=== PATIENT | female | born 1955 | race Caucasian/White ===

== ENCOUNTER 2017-06-08 09:55 | Emergency (ER) | payer OTHER, BC ==
[~2017-06-08] VITALS: Ht 160 cm; Wt 80.5 kg
[~2017-06-08 09:55] MED LIST: CETI10TA84 PO; CHOL1TAB42 PO; FERR325T PO; GABA800T PO; HYDR25TA5 PO; MULT-506 PO; NAPR1CAP12 PO; OMEG10007 PO; ROPI3TAB2 PO; WLLSR150 PO
[2017-06-08 10:00] VITALS: BP 140/73; PULSE 82; TEMP 36.7; O2SAT 96; Ht 160 cm; Wt 80.5 kg
--- NOTE | 2017-06-08 10:27 | EMERGENCY ROOM VISIT NOTE ---
History Report prepared by Philip: Rosalba Jackson Under the Supervision of: Thad FarahO. First contact with patient: 10:16 Chief Complaint: LEG PAIN,LEG INJURY Stated Complaint: RIGHT LEG PAIN History of Present Illness The patient is a 61 year old female who presents to the Emergency Room with complaints of sudden right leg pain beginning yesterday at 1600. The patient states that she was getting into her vehicle, and she felt a pop on her right upper leg and felt the pain radiate down. She reports that when she walks, the pain radiates down her leg and that it pendleton. She reports that she has torn her right hamstring twice, but that she has never needed surgery on it. The patient states that she has a walker and that she feels she needs this for assistance because of her pain. Pt denies headache and fevers. Source of History: patient Onset: 1600 yesterday Position: leg (right) Quality: burning Timing: other (sudden) Associated Symptoms: No fevers, No headache Review of Systems See HPI for pertinent positives & negatives. A total of 10 systems reviewed and were otherwise negative. Past Medical & Surgical Medical Problems: (1) Benign hypertension (2) Diabetes mellitus type 2 (3) Lumbar decompression and fusion Family History No pertinent family history stated. Social History Smoking Status: Never Smoker Drug Use: none Marital Status: Housing Status: lives with family Current/Historical Medications Scheduled Bupropion HCl (Bupropion HCl Sr), 150 MG PO BID Cetirizine (Zyrtec), 10 MG PO DAILY PRN Cholecalciferol (Vitamin D), 10,000 UNITS PO DAILY Ferrous Sulfate (Ferrous Sulfate), 325 MG PO DAILY Fish Oil ([place]-3), 2 CAP PO DAILY Gabapentin (Neurontin), 800 MG PO TID Hydrochlorothiazide (Hydrochlorothiazide), 25 MG PO DAILY Magnesium Oxide (Mag-Ox), 400 MG PO DAILY Multivitamin (Multivitamin), 1 TAB PO DAILY Naproxen Sodium (Aleve), 1 TAB PO BID Ropinirole Hydrochloride (Requip), 3 MG PO DAILY Scheduled PRN Oxycodone/Acetaminophen 5MG/325MG (Percocet 5MG/325MG), 1 TAB PO Q6H PRN for Pain Allergies Coded Allergies: Hydrocodone (Verified Allergy, Intermediate, ITCHING, 06/08/17) Latex (Unverified Allergy, Mild, rash, 06/08/17) Physical Exam Vital Signs Date Time Temp Pulse Resp B/P (MAP) Pulse Ox O2 Delivery O2 Flow Rate FiO2 06/08/17 10:00 36.7 82 18 140/73 96 Room Air Physical Exam GENERAL: alert, well appearing, well nourished, no distress, non-toxic EYE EXAM: normal conjunctiva, PERRL and EOM's grossly intact OROPHARYNX: no exudate, no erythema, lips, buccal mucosa, and tongue normal and mucous membranes are moist NECK: supple, no nuchal rigidity, no adenopathy, non-tender LUNGS: Clear to auscultation. Normal chest wall mechanics HEART: no murmurs, S1 normal and S2 normal ABDOMEN: abdomen soft, non-tender, normo-active bowel sounds, no masses, no rebound or guarding. BACK: Back is symmetrical on inspection and there is no deformity, no midline tenderness, no CVA tenderness. SKIN: no rashes and no bruising UPPER EXTREMITIES: upper extremities are grossly normal. LOWER EXTREMITIES: Pain in the proximal posterior right lower extremity with flexion of the knee. No pain on extension. Full ROM. No obvious contusion or edema. No palpable edema. Compartment soft. No bony tenderness. Normal distal pulses. No other extremity swelling. NEURO EXAM: Normal sensorium, cranial nerves II-XII grossly intact, normal speech, no gross weakness of arms, no gross weakness of legs. Medical Decision & Procedures ED Course 1023: The patient was evaluated in room C7. A complete history and physical exam was performed. 1045: Upon reevaluation, the patient is feeling better. I discussed the treatment plan with the patient. She verbalizes agreement and understanding. She was discharged home. Medical Decision The patient is a 61 year old female who presents to the ED with complaints of right leg pain. Differentials include: hamstring tear, fracture, sciatica, and muscle strain. No direct trauma, did not feel imaging of any additional value. Pt states will follow-up with ortho this week. Discussed symptoms to watch and return for, she verbalized understanding was agreeable with plan. Medication Reconcilliation Current Medication List: was personally reviewed by me Blood Pressure Screening Patient's blood pressure: Normal blood pressure Impression Primary Impression: Leg pain, right Additional Impression: Hamstring tear Scribe Attestation The scribe's documentation has been prepared under my direction and personally reviewed by me in its entirety. I confirm that the note above accurately reflects all work, treatment, procedures, and medical decision making performed by me. Departure Information Dispostion Home / Self-Care Prescriptions Oxycodone/Acetaminophen 5MG/325MG (PERCOCET 5MG/325MG) Tab 1 TAB PO Q6H Y for Pain, #10 TAB Prov: Soni Rosales, DO 06/08/17 Referrals No Doctor, Assigned (PCP) Forms HOME CARE DOCUMENTATION FORM, IMPORTANT VISIT INFORMATION Patient Instructions My [facility] [employer] Additional Instructions Please follow-up with your employee health/workmans comp department as this happened on the job. Please rest the leg, avoid prolonged walking and going steps. You may use anti-inflammatories to help with pain and if pain is persistent, may try to the stronger pain medicine. Please note that the narcotic pain medicine can constipate you or may make you dizzy/drowsy. Please do not take it and drive or drink alcohol. If you have any worsening pain, increased swelling in the leg, develop numbness/tingling, develop fevers, back pain, notice a change in your urine/stool, or you have any other new or concerning symptoms, please return to the emergency room. Problem Qualifiers
[2017-06-08] MEDS ORDERED: MAGN400T6 PO (10:29)
[2017-06-08] MEDS ORDERED: OXYC-57 PO (10:35)
== END 2017-06-08 10:49 | disposition home or self-care (01) ==
LOC: C.EDB 09:57 → C.EDC 10:49
DX: M79.604 Pain in right leg (principal); S76.312A Strain of muscle, fascia and tendon of the posterior muscle group at thigh level, left thigh, initial encounter; X58.XXXA Exposure to other specified factors, initial encounter; I10 Essential (primary) hypertension; E11.9 Type 2 diabetes mellitus without complications

== ENCOUNTER → 2017-06-13 | Outpatient (CLI) | payer BC ==
[~2017-06-13] MED LIST changes: +MAGN400T6 PO; +OXYC-57 PO
--- NOTE | 2017-06-13 15:46 | MAMMOGRAPHY REPORT ---
BILATERAL DIGITAL SCREENING MAMMOGRAM WITH CAD: 06/13/2017 CLINICAL HISTORY: Routine screening. Patient has no complaints. TECHNIQUE: Current study was also evaluated with a Computer Aided Detection (CAD) system. Bilateral CC and MLO views were obtained. COMPARISON: Comparison is made to exams dated: 10/14/2013 mammogram, 10/05/2012 mammogram, 10/17/2014 rani mogram, 10/02/2011 mammogram, 07/25/2010 mammogram, and 07/24/2009 mammogram - [facility] enter. BREAST COMPOSITION: There are scattered areas of fibroglandular density in both breasts. FINDINGS: No suspicious masses, calcifications, or areas of architectural distortion are noted in ei ther breast. There has been no significant interval change compared to prior exams. IMPRESSION: ACR BI-RADS CATEGORY 1: NEGATIVE There is no mammographic evidence of malignancy. A 1 year screening mammogram is recommended. The pa tient will receive written notification of the results. Approximately 10% of breast cancers are not detected with mammography. A negative mammographic report should not delay biopsy if a clinically suggestive mass is present. Kierra Hogan M.D. /:06/13/2017 14:12:07 Molder: Oliverio Oh, M, [facility] letter sent: Normal 1/2 BI-RADS Code: ACR BI-RADS Category 1: Negative
== END | disposition home or self-care (01) ==
LOC: C.MAMM 13:05
PROVIDERS: ATTEND Family Medicine
DX: Z12.31 Encounter for screening mammogram for malignant neoplasm of breast (principal)

== ENCOUNTER → 2017-06-16 | Outpatient (CLI) | payer BC | END | disposition home or self-care (01) | LOC: C.RDSM 17:17 | PROVIDERS: ATTEND Orthopaedic Surgery | DX: R52 Pain, unspecified (principal) ==

== ENCOUNTER 2017-06-26 07:29 | Observation (INO) | payer OTHER, BC ==
--- NOTE | 2017-06-23 14:26 | HISTORY & PHYSICAL EXAMINATION ---
DATE OF ADMISSION: 06/26/2017 CHIEF COMPLAINT: Right hip pain. HISTORY OF PRESENT ILLNESS: This 61-year-old female presents to the clinic today for preoperative history and physical. The patient states that on June 07, she was climbing into [employer] side by side at work and felt a pop in her right hip and since then, has had significant pain and gait disturbance with intermittent radiation of burning pain to her knee. The patient states that the pain is exacerbated with sudden movements or lying on her side. She states the pain improves with sitting. She denies any numbness or tingling in the right lower extremity or any traumatic injury to the area. PAST SURGICAL HISTORY: Lumbar fusion, bladder tacking, bilateral carpal tunnel release, and hysterectomy. PAST MEDICAL HISTORY: Restless legs syndrome, celiac disease, anxiety, hypertension, and type 2 diabetes, controlled with diet and exercise. FAMILY HISTORY: Father, pancreatic cancer. Mother, renal failure and diabetes. Sister, pancreatic cancer and COPD. Brother, diabetes. ALLERGIES: THE PATIENT HAS MEDICATION ALLERGIES TO CODEINE. SHE ALSO HAS A LATEX ALLERGY. CURRENT MEDICATIONS TAKEN: Bupropion unknown dosage daily, Zyrtec unknown dosage daily, Vitamin D3 at 1000 international units oral tablet daily, Valium 2 mg oral tablet 1 tablet at bedtime as needed for anxiety, ferrous sulfate unknown dosage daily, gabapentin 800 mg oral tablet 1 tab 3 times daily, hydrochlorothiazide unknown dosage daily, multivitamin unknown dosage 1 tab daily, naproxen 220 mg oral 1 tab every 12 hours as needed for pain, omega-3 polyunsaturated fatty acid 1200 mg oral capsule 1 capsule daily, and ropinirole 2 mg oral tablet 1 tab daily. SOCIAL HISTORY: The patient states she was a 1/4 pack per day smoker, but quit 17 years ago. She denies any alcohol or illicit drug use. PHYSICAL EXAMINATION: SKIN: The patient's skin is normal in appearance. No open skin lesions or discharge. EYES: Pupils are equal, round and reactive to light and accommodation. Extraocular movements are intact. EARS: Canals are clear of cerumen. Tympanic membranes are intact bilaterally with no bulging or effusion. NOSE: Turbinates are pink and boggy in appearance. No appreciable rhinorrhea. THROAT: Posterior oropharynx is clear without evidence of edema, erythema or exudate. The patient does have dentures on the top and bottom. CARDIOVASCULAR: The patient has regular rate and rhythm. No murmurs or gallops appreciated. LUNGS: Auscultation of lung salgado reveals clear breath sounds throughout. No wheezing, rales or rhonchi. ABDOMEN: Mildly obese, nondistended, and nontender with normoactive bowel sounds throughout. EXTREMITIES: Right hip: The patient experiences mild tenderness to palpation over the greater trochanter. She experienced pain with resisted abduction of the right lower extremity. She has a positive Trendelenburg test. Her hip flexion is to 100 degrees. External rotation of the hip is 50 degrees and internal rotation is 5 degrees. Severiano test is positive with 1 1/2 fists. The patient is neurovascularly intact in the right lower extremity. Peripheral pulses are palpable. Capillary refill is brisk. All other extremities are normal in appearance with appropriate range of motion and strength. NEUROLOGICAL: Cranial nerves II through XII intact. No motor or sensory deficits. PSYCHOLOGICAL AND GENERAL: The patient is alert and oriented x3 with proper grooming and hygiene. DIAGNOSIS: Right gluteus medius tear. PROCEDURE: Open right gluteus medius repair. MRI RESULTS: MRI shows complete tear of the gluteus medius with traction along with high grade partial tear of the gluteus minimus. PLAN: The patient is scheduled to undergo this procedure with Dr. Kristopher Menard at the [facility] on 06/26/2017. Risks and complications of surgery such as infection, bleeding, pain, scarring, nerve and blood vessel damage, weakness, wound problems, stiffness, incomplete relief of symptoms, heart attack, stroke, , blood clots and embolism were explained to the patient by Dr. Menard on her initial visit on June 16 and informed consent to perform the procedure was obtained. We will also obtain a preoperative EKG, CBC, CMP and medical clearance from the patient's primary care provider, Dr. Mason Stevens. The patient states that she has a walker at home, which she will bring with her on the day of surgery. She is advised that she will be provided with a hip brace after completion of the surgery. The patient will be scheduled for postop followup with myself on 07/09/2017 at 11:00 a.m. The patient was provided with a prescription for oxycodone 5 mg tablets, 1 to 2 tabs every 4 hours as needed for pain, enteric coated aspirin 81 mg to be taken for 30 days, enteric coated Tylenol 500-mg tablets 2 tablets by mouth every 8 hours as needed for pain, and Celebrex 200 mg oral tablets 1 tab daily for 30 days with 1 refill. PDMP was checked and no red flags were raised that would prevent us from prescribing the patient an opiate analgesic. The patient has no additional questions for us at this time. She is advised that she will be admitted for 23-hour observation and will meet with dialysis social worker after the surgery to discuss placement in a rehab facility for 2 weeks postoperatively and then, mostly likely will continue outpatient therapy for 4-6 weeks. The patient was advised that she will be nonweightbearing of the right lower extremity for approximately 1 month. The patient thanked us for the care she received in our clinic today and verbalized understanding of all the information provided and states that if she has any additional questions or concerns that should arise prior to her surgery date, she will contact the clinic. BARTOLO
[2017-06-26] VITALS (8 sets, daily range): BP systolic 106–134; BP diastolic 66–79; PULSE 62–82; TEMP 36.3–36.8; O2SAT 94–100; Ht 160 cm; Wt 77.3 kg
[~2017-06-26] VITALS: Ht 160 cm; Wt 77.3 kg
[~2017-06-26 07:29] MED LIST changes: +BUPIVACAINE 0.5 % 5 MG/1 ML PF 10ML VIAL ONE; +CEFAZOLIN 2000MG IV PUSH 10 ML IV SCH; -CETI10TA84 PO; +LACTATED RINGER'S 1000ML 1,000 ML IV SCH; -OXYC-57 PO
[2017-06-26] MEDS ORDERED: FENTANYL CITRATE INJ 50 MCG/1 ML 2 ML VIAL ONE (08:13)
[2017-06-26] MEDS ORDERED: MIDAZOLAM HCL 1 MG/ML 2ML VIAL ONE ×2 (08:13→10:59)
--- NOTE | 2017-06-26 09:50 | History & Physical Bridge Note ---
H&P Re-Evaluation Bridge Note: I have examined the patient, reviewed the History & Physical and in the interval since the performance of the History & Physical I have noted the following changes of clinical significance: No changes noted
[2017-06-26] MEDS ORDERED: PROPOFOL IV EMULSION 10 MG/ML 20 ML VIAL IV ONE (10:16)
[2017-06-26] MEDS ORDERED: EpHEDrine SULFATE 50MG/5ML SYR ONE (10:18)
[2017-06-26] MEDS ORDERED: NURSING VERBAL MED ORDER ONE (10:45)
[2017-06-26] MEDS ORDERED: TRANEXAMIC ACID AMP 1,000 MG in NSS 100ML IV SCH (11:00)
--- NOTE | 2017-06-26 11:47 | [facility] Post Operative Brief Note ---
Immediate Operative Summary Operative Date Jun 26, 2017. Pre-Operative Diagnosis Right Gluteus Medius Tear Post-Operative Diagnosis Right Gluteus Medius Tear Procedure(s) Performed Open Right Gluteus Medius Repair Surgeon Dr. Menard Counting Machine Operator Surgeon(s) BARRY Garcia Estimated Blood Loss 50ML Findings Gluteus medius repaired with 5 suture anchors in double row fashion Specimens none per surgeon Drains None Anesthesia Spinal Complication(s) None Disposition Recovery Room / PACU
[2017-06-26] MEDS ORDERED: ALUMINUM/MAGNESIUM/SIMETH (MAALOX MAX) 30 ML UDC PO PRN (12:00)
[2017-06-26] MEDS ORDERED: METOCLOPRAMIDE HCL INJ 5 MG/ML 2 ML VIAL IV PRN (12:00)
[2017-06-26] MEDS ORDERED: MAGNESIUM HYDROXIDE SUSP 30 ML UDC PO PRN (12:00)
[2017-06-26] MEDS ORDERED: EpHEDrine SULFATE INJ 50 MG/ML AMP IV PRN (12:00)
[2017-06-26] MEDS ORDERED: FERROUS GLUCONATE 324 MG TAB PO SCH (12:00)
[2017-06-26] MEDS ORDERED: ONDANSETRON INJ 2 MG/ML 2 ML VIAL IV PRN (12:00)
[2017-06-26] MEDS ORDERED: MoRPHine SULFATE 2 MG/ML CARP IV PRN ×3 (12:00→13:30)
[2017-06-26] MEDS ORDERED: DiphenhydrAMINE HCL 50 MG/ML VIAL IV PRN (12:00)
[2017-06-26] MEDS ORDERED: ATROPINE SULFATE 0.1 MG/ML 5ML SYR IV PRN (12:00)
--- NOTE | 2017-06-26 12:00 | [facility] Operative Report ---
Operative Report Operative Date Jun 26, 2017. Pre-Operative Diagnosis Right Gluteus Medius Tear Post-Operative Diagnosis Right Gluteus Medius Tear Procedure(s) Performed Open Right Gluteus Medius Repair Surgeon Dr. Menard Plate Conditioner Surgeon(s) BARRY Garcia Estimated Blood Loss 50ML Findings na Specimens none per surgeon Drains None Anesthesia Spinal Complication(s) None Disposition Recovery Room / PACU I attest to the content of the Intraoperative Record and any orders documented therein. Any exceptions are noted below.
--- NOTE | 2017-06-26 12:05 | Discharge Instructions ---
Discharge Instructions Date of Service Jun 26, 2017. Admission Reason for Admission: Right Gluteus Medius Tear Discharge Discharge Diagnosis / Problem: Open Right Gluteus Medius Repair Discharge Goals Goal(s): Decrease discomfort, Improve function, Increase independence Activity Recommendations Activity Limitations: as noted below Lifting Limitations: until after follow-up appointment Exercise/Sports Limitations: none May Resume Sexual Activity: after follow-up appointment Shower/Bathe: tomorrow, keep incision dry Driving or Machine Use: None until cleared by orthopedic surgeon Weightbearing Status: Right non-weightbearing (x 8 weeks with use of hip brace and walker) . Instructions / Follow-Up Instructions / Follow-Up Post-operative Instructions Dear Patient and Family/Friends, Before you are discharged from the hospital, it is important to know what to expect when you get home after surgery. To that end, we have created this sheet of discharge instructions which covers many commonly asked questions. Make sure you go through this sheet in its entirety with your nurse before you are discharged. Please note that we will go over the specifics of your surgery and recovery when you return for your first post-operative visit. Sincerely, Dr. Menard Pain Expect to be in a fair amount of pain after surgery. Remember, our goal is not to eliminate your pain, but to make it tolerable. It is a good idea to stay ahead of your pain by taking the medications you were prescribed once you get home. Typically, the pain starts improving 3-7 days after surgery. You should start weaning off the narcotic pain medication (oxycodone, hydrocodone, hydromorphone, morphine) as soon as your pain improves. Please call our office if your pain is not adequately controlled. Ice Ice your operative site at least 5 times a day for 15-30 minutes at a time. Make sure you have a thin cloth between the ice or cooling unit and your skin to prevent recinos bite. This is especially important if you received a nerve block. Continue icing your operative site for the first 5-7 days after surgery , then as needed. Diet/Nausea/Vomiting Start by drinking clear liquids and eating crackers. If you can tolerate this, then you may resume your normal diet. If you feel nauseated or vomit, take Zofran/ondansetron (if prescribed). Please call our office if you have intractable nausea or vomiting, or, if after hours, you may go to the Emergency Room for help. Constipation Constipation is a common side effect of narcotic pain medication. If you have not had a bowel movement within 2 days after surgery, we recommend purchasing an over the counter laxative such as Milk of Magnesia, Dulcolax, or Miralax from a local pharmacy, and taking it as instructed. Call our clinic if any questions. Slings and Braces If you were placed in a sling or brace, it must be worn at all times, including sleep. You may remove your sling or brace for physical therapy, home exercises , and showering. The length of time you will be in your brace and range of motion restrictions depends on what surgery you had; these details will be reviewed at your first post-operative appointment. Nerve block The anesthesia team sometimes places a nerve block to help with post-operative pain control. This results in significant numbness and inability to move the extremity. The nerve block usually wears off in 8-12 hours, but sometimes can last up to 24 hours. Please call our office if you are still unable to move your extremity after 24 hours, unless you received a pain pump to take home. Nerve blocks typically wear off quickly, so start taking pain medication as soon as you start feeling soreness near your surgical site. Weight bearing and Range of Motion. Do not bear any weight through your operative extremity immediately after surgery. If you had upper extremity surgery, do not lift anything with that arm. If you are in a knee brace, keep it locked in place until your follow-up. We will discuss your weight bearing, range of motion, and lifting restrictions in detail at your first post-operative appointment. Continuous Passive Motion (CPM) Machine If you were prescribed a CPM machine, it will start after your first post- operative appointment, at which time we will give you instructions on the range of motion settings and duration of treatment Physical therapy You will be given a prescription for physical therapy or occupational therapy at your first post-operative appointment. Typically, patients start therapy within 1 week of surgery Wound care and showering We will inspect your wound at your first post-operative visit, and may do a dressing change at that time. Most patients will be in a water-proof dressing that is removed 14 days after surgery. It is normal to see some dried blood on the dressing. Do not remove your dressing, paper strips or sutures yourself unless you are given permission. Showering is allowed the day after surgery. Do not scrub or remove any dressings. The wound should not be submerged underwater (i.e. in a bathtub or pool) until 4 weeks after surgery ZELDA stockings If you were given white stockings, these are to be worn at all times except to shower (on both legs) for the first 2 weeks after surgery. Driving You may not drive while taking narcotic pain medication or while in a cast, splint, sling or brace. You, the patient, need to make the final determination about when you are safe to drive, however, the earliest you may consider driving after surgery is below: Hand/Wrist/Elbow Surgery: 3 days Shoulder Surgery: 2 weeks Hip,/Knee/Ankle Surgery: 4 weeks Fracture repair: 6 weeks Return to Work Your return to work depends on what surgery was done and what type of work you do. Please bring any paperwork your employer needs completed to your first post -operative visit. Also, bring a description of your job duties, as this helps us to understand what risks you may face at work. Travel Avoid long distance travel (greater than 1 hour) in airplanes and cars for the first 6 weeks after surgery. If you must travel, you need to have a Doppler ultrasound done before you travel to rule out a blood clot in your legs. Follow-up You should have a follow-up appointment already scheduled 1-2 days after surgery. If not, please contact our office to make this appointment before you leave the hospital. When to call the office It is normal to have swelling and bruising in the limb that was operated on. This will improve with time. It is also normal to have fevers for the first 2 days after surgery. Reasons you should call your doctor include: Uncontrolled pain; Nausea, vomiting, or constipation that does not improve with medication; Fevers over 101.5, chills, sweats; Drainage or bleeding from the wound; Foul odor; Spreading areas of redness; Any other concerns Current Hospital Diet Patient's current hospital diet: Regular Diet Discharge Diet Recommended Diet: Diabetes Type 2 Diet Procedures Procedures Performed: Open Right Gluteus Medius Repair Pending Studies Studies pending at discharge: no Medical Emergencies . Who to Call and When: Medical Emergencies: If at any time you feel your situation is an emergency, please call 911 immediately. . Non-Emergent Contact Non-Emergency issues call your: Primary Care Provider Call Non-Emergent contact if: you have a fever, temperature is above 101.5, your pain is not controlled, your pain is worsening, wound has increased drainage, you have any medication questions . "Provider Documentation" section prepared by Wilbur Hernandez. . VTE Core Measure Inpt VTE Proph given/why not?: Other Anticoagulation (Aspirin EC 81 mg daily), T.E.DCalvin Stockings, [facility] [place] Drug Monitoring Program Search Results: patient reviewed within database, no issues identified, see additional documentation
[2017-06-26] MEDS ORDERED: IV FLUIDS COMPLETED PRN (12:30)
--- NOTE | 2017-06-26 12:39 | OPERATIVE REPORT ---
DATE OF OPERATION: 06/26/2017 PREOPERATIVE DIAGNOSIS: Right gluteus medius tear. POSTOPERATIVE DIAGNOSIS: Same. PROCEDURE: Open right gluteus medius repair. SURGEON: Kristopher Menard M.D. EVAPORATOR HELPER SURGEON: Thad Hernandez. ESTIMATED BLOOD LOSS: 50 mL. IMPLANTS: 4 Arthrex SwiveLock sutures and one 4.5 mm SwiveLock suture anchor. SPECIMENS: None. COMPLICATIONS: None. INDICATIONS: Ms. Espino is a 61-year-old female who on 06/07/2017 was at work when she was getting out of a [employer] and felt a pop in the lateral aspect of her hip. She has had pain since that time as well as limping when she walks. MRI was obtained showing a gluteus medius tear. Her physical exam was consistent with this with tenderness over the tip of the greater trochanter, weakness in hip abduction and a Trendelenburg gait. I had a long discussion with her about the risks and benefits of surgery, alternatives to surgery and expected outcomes. After reviewing all these she elected to proceed with surgery. All questions were answered. Informed consent was signed. OPERATIVE FINDINGS: The gluteus medius was torn all the way off its lateral facet and had a partial tear off the posterior superior facet. The lateral facet was repaired in a double row fashion with 4 SwiveLock anchors. The posterior superior facet was exposed and a corkscrew anchor was placed to repair the partial tear here. DESCRIPTION OF THE OPERATION: The patient was identified in the preoperative holding area where her surgical site was marked. She was given a spinal anesthetic and brought back to the main operating room where she was placed in the operating room table and moved into the lateral decubitus position. Axillary roll was placed. All bony prominences were padded. Perioperative antibiotics were administered. She was prepped and draped in the normal sterile fashion. Prior to incision a multidisciplinary timeout was called. All in the room were in agreement. We began by making a 10 cm long incision centered over the tip of the greater trochanter. We dissected down through subcutaneous tissues to the level of fascia. The fascia was incised in line with the incision. A Charnley bow was placed. Trochanteric bursal tissue was excised with electrocautery. The gluteus medius was inspected and there was flimsy scar tissue was all that was holding the gluteus medius down to the lateral facet. I dissected through this to expose the completely bare and lateral facet of the greater trochanter. In the posterior superior facet the gluteus medius was partially attached. I therefore left this portion of the insertion attached. I then opened up the punch for the SwiveLock anchors. Two of the SwiveLock anchors were preloaded with FiberTape. These were placed on the more anterior aspect of the lateral facet. The fiber tapes were passed through the gluteus medius tendon medially and the rescue sutures were also passed in a horizontal mattress fashion just behind the FiberTapes. The same thing was done with the second SwiveLock anchor medially. I then tied down the rescue sutures to act as a rip-stop. Two lateral row anchors were then placed crisscrossing the FiberTape sutures as well as the rescue sutures so that there were 4 strands of suture in each SwiveLock. Excellent fixation was obtained. Next, a 4.5 mm corkscrew anchor was placed up underneath the posterior superior facet. This was a double-loaded anchor. The sutures were passed in a horizontal mattress fashion up through the tendon and then tied down without difficulty. There was no indication for a lateral row repair here given the partial tear. At this point, the hip was moved through a full range of motion and there was excellent attachment of the gluteus medius back onto the trochanter. A bump was placed underneath the knee to hold the hip in abduction. The hip was irrigated with copious amounts of normal saline. The fascia was then closed with a #1 looped PDS suture. The subcutaneous tissues were run with 2 layers of 0 PDS. The skin was closed with a running 3-0 Monocryl. Steri-Strips and a Silverlon dressing were applied followed by a compressive bandage. She was placed into a hip brace with the hip flexed to 15 degrees to assist in keeping her nonweightbearing on the right side. She was rolled supine and transferred to a hospital bed and then to the recovery room in stable condition. POSTOPERATIVE COURSE: The patient will be admitted overnight. We arranged for her to transfer to [facility] where she will be in inpatient rehabilitation. She lives in a split level house and since she will need to maintain nonweightbearing for 8 weeks on this not safe for her to return home until she has demonstrated ability to navigate stairs maintaining nonweightbearing. This could take as long as 2 months. She will be on aspirin for DVT prophylaxis. She will see physical therapy tonight and tomorrow. I attest to the content of the Intraoperative Record and any orders documented therein. Any exception s are noted below.
--- NOTE | 2017-06-26 12:46 | Anesthesiology Progress Note ---
Anesthesia Post Op Note Date & Time Jun 26, 2017 at 12:46 Vital Signs Pain Intensity: 0 Vital Signs Past 12 Hours Date Time Temp Pulse Resp B/P (MAP) Pulse Ox O2 Delivery O2 Flow Rate FiO2 06/26/17 12:25 67 16 109/60 99 Nasal Cannula 2 06/26/17 12:15 36.7 75 16 103/63 99 Nasal Cannula 2 06/26/17 12:05 78 16 112/62 99 Nasal Cannula 2 06/26/17 11:55 75 16 109/64 100 Oxymask 10 06/26/17 11:49 36.7 78 16 106/59 97 Oxymask 10 06/26/17 07:52 36.7 78 20 106/71 (83) 96 Room Air Notes Mental Status: alert / awake / arousable, participated in evaluation Pt Amnestic to Procedure: Yes Nausea / Vomiting: adequately controlled Pain: adequately controlled Airway Patency, RR, SpO2: stable & adequate BP & HR: stable & adequate Hydration State: stable & adequate Neuraxial Anesthesia: was administered, sensory block is resolving Anesthetic Complications: no major complications apparent
[2017-06-26] MEDS ORDERED: MoRPHine SULFATE 4 MG/ML 1 ML CARP\\VIAL IV PRN ×2 (13:30)
[2017-06-26] MEDS: GABAPENTIN 800 MG TAB PO SCH ×2 (14:46→21:49)
[2017-06-26] MEDS: D5W AND 1/2NSS + 20MEQ KCL 1,000 ML IV SCH ×2 (14:46→23:39)
[2017-06-26] MEDS: ACETAMINOPHEN 500 MG TAB PO SCH ×2 (14:46→21:47)
[2017-06-26] MEDS: OXYCODONE HCL IR 5 MG TAB (IMMEDIATE RELEASE) PO PRN (18:44)
[2017-06-26] MEDS: CEFAZOLIN IV 2,000 MG in SYRINGE 0 ML IV SCH (18:45)
[2017-06-26] MEDS: KETOROLAC TROMETHAMINE 30 MG/ML VIAL IV. SCH ×2 (19:05→23:39)
[2017-06-26] MEDS: DOCUSATE SODIUM 100 MG CAP PO SCH (20:54)
[2017-06-26] MEDS: CHOLECALCIFEROL 1000 INTER.UNIT TAB PO SCH (20:55)
[2017-06-26] MEDS ORDERED: MAGNESIUM OXIDE 400 MG TAB PO SCH (21:00)
[2017-06-26] MEDS ORDERED: SENNA 8.6 MG TAB PO SCH (21:00)
[2017-06-26] MEDS ORDERED: ROPINIROLE HCL 1 MG TAB PO SCH (21:00)
[2017-06-26] MEDS: BuPROPion SR 100 MG TABCR PO SCH (21:48)
[2017-06-27] MEDS: CEFAZOLIN IV 2,000 MG in SYRINGE 0 ML IV SCH (01:45)
[2017-06-27] MEDS: KETOROLAC TROMETHAMINE 30 MG/ML VIAL IV. SCH ×2 (05:46→12:36)
[2017-06-27] MEDS: ACETAMINOPHEN 500 MG TAB PO SCH (05:46)
[2017-06-27 05:59] LABS: HEMATOCRIT 40.8 % (37-47); MEAN CELL VOLUME 90.9 fL (80-100); MEAN CORPUSCULAR HEMOGLOBIN 28.7 pg (25-34); MEAN CORPUSCULAR HGB CONC 31.6 g/dl (32-36); MEAN PLATELET VOLUME 8.3 fL (7.4-10.4); PLATELET COUNT 306 K/uL (130-400); RED BLOOD COUNT 4.49 M/uL (4.2-5.4); WHITE BLOOD COUNT 8.24 K/uL (4.8-10.8)
[2017-06-27 06:29] LABS: BUN/CREATININE RATIO 36.2 (10-20); CALCIUM 8.1 mg/dl (8.5-10.1); CREATININE 0.53 mg/dl (0.60-1.20); POTASSIUM 4.4 mmol/L (3.5-5.1)
[2017-06-27 07:33] VITALS: BP 113/70; PULSE 69; TEMP 36.7; O2SAT 95
--- NOTE | 2017-06-27 08:29 | Anesthesiology Progress Note ---
Anesthesia Post Op Note Date & Time Jun 27, 2017 at 08:28 Vital Signs Pain Intensity: 9.0 Vital Signs Past 12 Hours Date Time Temp Pulse Resp B/P (MAP) Pulse Ox O2 Delivery O2 Flow Rate FiO2 06/27/17 07:33 36.7 69 16 113/70 (84) 95 Room Air 06/26/17 23:16 36.8 72 16 123/74 (90) 95 Room Air 06/26/17 22:30 Room Air Notes Mental Status: alert / awake / arousable, participated in evaluation Pt Amnestic to Procedure: Yes Nausea / Vomiting: adequately controlled Pain: adequately controlled Airway Patency, RR, SpO2: stable & adequate BP & HR: stable & adequate Hydration State: stable & adequate Neuraxial Anesthesia: sensory block resolved Anesthetic Complications: no major complications apparent
[2017-06-27] MEDS: GABAPENTIN 800 MG TAB PO SCH (08:41)
[2017-06-27] MEDS: DOCUSATE SODIUM 100 MG CAP PO SCH (08:41)
[2017-06-27] MEDS: BuPROPion SR 100 MG TABCR PO SCH (08:42)
[2017-06-27] MEDS: CHOLECALCIFEROL 1000 INTER.UNIT TAB PO SCH (08:43)
[2017-06-27] MEDS: OXYCODONE HCL IR 5 MG TAB (IMMEDIATE RELEASE) PO PRN (08:52)
--- NOTE | 2017-06-27 08:56 | Orthopedic Progress Note ---
Orthopedic Progress Note Date of Service Jun 27, 2017. Subjective Post OP Day: 1 Reports: feeling well, pain controlled w PO medications, Denies: complaints, chest pain, SOB, nausea / vomiting, light headedness, calf pain, using AUTO SERVICE ADVISOR Objective calves soft nontender, N/V intact, hip located, capillary refill less than 2 sec., dressing C/D/I, incision C/D/I, A&O x3, toes mobile, CMS intact Date Time Temp Pulse Resp B/P (MAP) Pulse Ox O2 Delivery O2 Flow Rate FiO2 06/27/17 07:33 36.7 69 16 113/70 (84) 95 Room Air 06/26/17 23:16 36.8 72 16 123/74 (90) 95 Room Air 06/26/17 22:30 Room Air 06/26/17 18:28 36.7 80 18 114/66 (82) 96 Room Air 06/26/17 16:10 Room Air 06/26/17 15:25 36.7 82 18 119/76 (90) 94 Room Air 06/26/17 14:38 73 16 134/79 (97) 95 Room Air 06/26/17 13:35 70 16 124/79 (94) 99 Nasal Cannula 2.0 06/26/17 13:07 36.3 62 16 120/78 (92) 98 Nasal Cannula 2.0 06/26/17 12:35 36.4 62 16 108/68 (81) 100 Nasal Cannula 2.0 06/26/17 12:35 Nasal Cannula 2.0 06/26/17 12:35 Nasal Cannula 2.0 06/26/17 12:25 67 16 109/60 99 Nasal Cannula 2 06/26/17 12:15 36.7 75 16 103/63 99 Nasal Cannula 2 06/26/17 12:05 78 16 112/62 99 Nasal Cannula 2 06/26/17 11:55 75 16 109/64 100 Oxymask 10 06/26/17 11:49 36.7 78 16 106/59 97 Oxymask 10 Laboratory Results 24 Hours: Test 06/27/17 05:48 Hematocrit 40.8 % Hemoglobin 12.9 g/dL Assessment & Plan Assessment: Day 1 s/p Right Gluteus Medius Repair Plan: Pending discharge to [facility] today. Keep brace in place at all time except when bathing. Ice and elevate. Change outer dressings daily, however do not removed the Silverlon pad that is directly over the incision site. PT/OT Eval and treat x 6 wks. Pt has Rx's that were provided during her preop exam. F/u at [facility] as previous scheduled If you have any questions call [phone] Discharge Planning Discharge Planning: rehab hospital Pain Management: Celebrex, PO Tylenol, other (Oxycodone) DVT Prophylaxis: TEDs, SCDs, ASA Therapy: Physical Therapy, Occupational Therapy
[2017-06-27] MEDS ORDERED: ASPIRIN 81 MG ECTAB PO SCH (09:00)
[2017-06-27] MEDS ORDERED: MULTIVITAMIN TAB PO SCH ×2 (09:00)
[2017-06-27] MEDS ORDERED: OMEGA-3 (PURIFIED FISH OIL) 1 GM CAP PO SCH (09:00)
[2017-06-27] MEDS ORDERED: HYDROCHLOROTHIAZIDE 25 MG TAB PO SCH (09:00)
[2017-06-27] MEDS ORDERED: FERROUS SULFATE 325 MG TAB PO SCH (09:00)
[2017-06-27] MEDS ORDERED: PANTOprazole SOD 40 MG TAB PO SCH (09:00)
--- NOTE | 2017-06-27 09:03 | Discharge Summary ---
Orthopedic Discharge Summary Admission Date/Reason Jun 26, 2017 at 11:58 Right Gluteus Medius Tear. Discharge Date/Disposition Jun 27, 2017 senior care facility ([facility]) Diagnosis Principal Diagnosis: Right Gluteus Medius Tear Procedure(s) Performed Right Gluteus Medius Repair Medication Reconciliation See Med list on Discharge. Admission Physical Exam As per Admitting History & Physical. Hospital Course Patient had repair of her Right Gluteus Medius by Dr. Kristopher Menard yesterday (06/26/17) and is pending discharge to [facility] later today ( 06/27/17). Patient is doing very well. Pain controlled with PO Meds. Patient has all necessary prescriptions for post op meds and for PT/OT to be done for next 2 wks at [facility]. Patient already is scheduled for her 2 wk post operative f/ u at [facility]. Discharge Instructions Please refer to the electronic Patient Visit Report (Discharge Instructions) for additional information.
[2017-06-27 09:09] VITALS: BP 125/68; PULSE 78
[2017-06-27] MEDS ORDERED: NURSING VERBAL MED ORDER ONE (09:30)
[2017-06-27 11:58] VITALS: BP 113/70; PULSE 69; TEMP 36.7; O2SAT 95
[2017-06-27] MEDS ORDERED: CeleBREX 200 MG CAP PO SCH (21:00)
== END 2017-06-27 13:45 ==
LOC: C.ACU 07:29 → C.3E 11:58 → ENRESERV 12:16
PROVIDERS: ADMIT Orthopaedic Surgery; ATTEND Orthopaedic Surgery
DX: S76.311A Strain of muscle, fascia and tendon of the posterior muscle group at thigh level, right thigh, initial encounter (principal); X50.0XXA Overexertion from strenuous movement or load, initial encounter; I10 Essential (primary) hypertension; E11.9 Type 2 diabetes mellitus without complications; K90.0 Celiac disease; G25.81 Restless legs syndrome; F41.9 Anxiety disorder, unspecified; Z79.899 Other long term (current) drug therapy; Z87.891 Personal history of nicotine dependence

== ENCOUNTER → 2017-08-06 | Outpatient (CLI) | payer OTHER, BC ==
[~2017-08-06] MED LIST changes: -BUPIVACAINE 0.5 % 5 MG/1 ML PF 10ML VIAL ONE; -CEFAZOLIN 2000MG IV PUSH 10 ML IV SCH; +FERR1TAB62 PO; -FERR325T PO; -LACTATED RINGER'S 1000ML 1,000 ML IV SCH
== END | disposition home or self-care (01) ==
LOC: C.RDSM 13:18
PROVIDERS: ATTEND Orthopaedic Surgery
DX: M25.551 Pain in right hip (principal)